=== PATIENT | male | born 1950 | race Caucasian/White ===

== ENCOUNTER 2017-07-07 05:56 | Inpatient (IN) ==
[2017-07-07] MEDS ORDERED: MELOXICAM 15 MG TABLET PO ONE (06:00)
[2017-07-07] MEDS ORDERED: LIDOCAINE 1% (10mg/ml) 2mL INJ PF SDV ID ONE (06:00)
[2017-07-07] MEDS ORDERED: ACETAMINOPHEN 500 MG TABLET PO ONE (06:00)
[2017-07-07] MEDS ORDERED: DEXAMETHASONE 4 MG/ML INJECTION IVP ONE (06:00)
[2017-07-07] MEDS ORDERED: METOCLOPRAMIDE 10mg/2ml INJECTION IVP ONE (06:00)
[2017-07-07] MEDS ORDERED: NOZIN NASAL SWAB NAS ONE ×2 (06:00→10:34)
[2017-07-07] MEDS ORDERED: ONDANSETRON 4 MG/2 ML INJECTION IVP ONE (06:00)
[2017-07-07] MEDS ORDERED: FAMOTIDINE PB 20 MG/50 ML BAG IV ONE (06:00)
[2017-07-07 06:16] VITALS: BMI 27.8
[2017-07-07] MEDS: LR 1,000 ML IV SCH ×2 (06:43→09:58)
[2017-07-07] MEDS ORDERED: VANCOMYCIN 1,000 MG INJECTION ONE (07:10)
--- NOTE | 2017-07-07 07:40 | Anesthesia Preoperative Report ---
Anesthesia Preoperative Record - Date and Time Date: 07/07/17 Preoperative Diagnosis: Lt TKA M17.12 Proposed Procedure: Left Total knee replacement NPO Since Date: 07/07/17 NPO Since Time: 00:00 Allergies/Adverse Reactions: Allergies Allergy/AdvReac Type Severity Reaction Status Date / Time morphine Allergy Unknown Rash Verified 07/07/17 06:18 - Vital Signs Vital Signs: Temperature 98.3 F 07/07/17 06:16 Pulse Rate 72 07/07/17 06:25 Respiratory Rate 16 07/07/17 06:16 Blood Pressure 145/74 H 07/07/17 06:16 Pulse Oximetry 94 07/07/17 06:16 Height and Weight: Height 5 ft 7 in Weight 80.7 kg Body Mass Index 27.8 - Medications Inpatient Medications: Current Medications Cefazolin Sodium (Kefzol) 2 g IVP PREOP ONE Stop: 07/07/17 08:31 Epinephrine HCl 0.25 mg/Bupivacaine HCl 30 ml/Ketorolac Tromethamine 60 mg/ Sodium Chloride 62.25 mls @ 0 mls/hr OPSITE INTRAOP ONE; Per Protocol PRN Reason: Protocol Stop: 07/07/17 08:01 Lactated Ringer's (Lactated Ringers) 1,000 mls @ 50 mls/hr IV .Q20H LOBO Last Admin: 07/07/17 06:43 Dose: 50 mls/hr Sodium Chloride (Iv Flush) 10 - 80 ml IV PRN PRN PRN Reason: Flushing Tranexamic Acid (Cyklokapron) 1,000 mg TOP INTRAOP ONE Stop: 07/07/17 11:01 Home Medications: Home Medications Medication Instructions Recorded Confirmed Type Aspirin *EC* [Ecotrin] 81 mg PO DAILY 05/30/17 07/06/17 History Loratadine [Claritin] 10 mg PO DAILY 05/30/17 07/07/17 History Minocycline [Minocin] 100 mg PO DAILY 05/30/17 05/30/17 History Multivitamin [One Daily] 1 each PO DAILY 05/30/17 07/07/17 History Pravastatin Sodium [Pravachol] 60 mg PO HS 05/30/17 07/07/17 History Ranitidine [Zantac] 150 mg PO BID 05/30/17 07/07/17 History Plavix (clopidogrel) 75 mg tablet 75 mg PO DAILY 05/31/17 07/06/17 History Is Patient on Beta Nahum?: No - Medical History Respiratory: DENIES: Sleep Apnea Cardiovascular: Reports: High Cholesterol Gastrointestional: Reports: Gastroesophageal Reflux Disease Neuro/Musculoskeletal: Reports: HX.MS.OSAR, Back Problems, Cerebrovascular Accident (TIA- No residual) Other History: Reports: Anesthesia Reactions (shoulder block x2 did not work, other locals have not worked) - Surgical History HEENT Surgeries: Reports: Eye Surgery (OU cataract ext with IOL implant), Nose Surgery (deviated septum) Cardiac Surgeries/Treatments: Reports: Cardiac Catheterization (2001-Negative) GI Surgery/Treatments: Reports: Colonoscopy (2013) Musculoskeletal Surgery/Tx: Reports: Knee Arthroscopy (left x2), Shoulder Arthroscopy (right x2), Other (Lt trigger finger release; exc of ganglion cyst) Anesthesia Reactions: None Hx Family Anesthesia Reaction: No History of Motion Sickness: No - Social History Smoking Status: Never smoker Substance Use Type: does not use Alcohol Intake Frequency: does not drink - Pertinent Findings Laboratory: CBC and BMP 07/07/17 06:33 EKG: Sinus Rhythm - Physical Exam Respiratory Exam: Present: lungs clear, bilateral breath sounds equal Cardiovascular Exam: Present: regular rate and rhythm, no murmur - Airway Assessment Mallampati Score: II TMD: 3 Fingerbreadths Neck Extension: fair Overall Assessment: may be difficult intubation - ASA ASA Score: 2 - Plan Anesthesia: General Inhalation Gases Peripheral Nerve Block: Other (post op adductor canal block) - Discussion Discussion: Discussed risks/options/alternatives of anesthesia and questions answered. Patient consents. Nursing pain assessment noted. Present for Discussion: family member Attestation Statement: Prior to the delivery of any anesthetic medication, I examined the patient, developed the plan, obtained the patient's consent and discussed the risk and benefits of the procedure with the patient/guardian. - Additional Information Seen by Anesthesia: Yes
[2017-07-07] MEDS ORDERED: HYDROMORPHONE 2 MG/ML INJECTION IVP PRN (07:41)
[2017-07-07] MEDS ORDERED: DiphenhydrAMINE 50 MG/ML INJECTION IVP PRN ×2 (07:41→10:34)
[2017-07-07] MEDS ORDERED: ONDANSETRON 4 MG/2 ML INJECTION IVP PRN ×2 (07:41→10:34)
[2017-07-07] MEDS ORDERED: ANESTHESIA MIXTURE 50 ML IV ONE (07:45)
[2017-07-07] MEDS ORDERED: HYDROMORPHONE 2 MG/ML INJECTION ONE (07:49)
[2017-07-07] MEDS ORDERED: FentaNYL 100 MCG/2 ML INJECTION ONE (07:50)
[2017-07-07] MEDS ORDERED: EPINEPHrine PF 0.25 MG, BUPIVACAINE 0.25% PF 30 ML, KETOROLAC INJ 60 MG in NS 30 ML OPSITE ONE (08:00)
[2017-07-07] MEDS ORDERED: CEFAZOLIN 1 G INJECTION IVP ONE (08:30)
[2017-07-07] MEDS ORDERED: VANCOMYCIN 1,000 MG INJECTION IAR ONE (09:23)
--- NOTE | 2017-07-07 09:38 | Operative Note ---
- Procedure Preoperative Diagnosis: Left knee primary degenerative joint disease Postoperative Diagnosis: Same as preoperative diagnosis. Surgeon: Ventura Lion MD Patient Care: Navi Small Complications: None. Anesthesia: General Estimated Blood Loss: See Anesthesia Record. Fluids: Please see Anesthesia Record. Desciption of Procedure: Mr. Spencer and his left knee were identified and marked in the preoperative holding area. He was brought back to the operating suite after a saphenous nerve block was placed in the preoperative holding area. He was placed under general anesthesia. The left lower extremity was prepped and draped in my normal sterile fashion. Timeout was performed. The [employer] robot was used during the surgery. He has fixed varus deformity with mild flexion contracture. A standard anterior midline incision followed by medial parapatellar arthrotomy was performed. Anterior fat pad and meniscus were removed. The patella was resurfaced to a size 35. Tibial and femoral arrays were placed both within the original incision. Checkpoints were then placed both in the femur and the tibia. The bone was then registered with the [employer] robot. Osteophytes were removed and gaps were captured both 90 and 0 with correction after larger medial release. We corrected back to about 4 of varus in both flexion and extension. [employer] robotic software was used to obtain 80 mm Flexion 17 Mm Gaps in Extension. The [employer] robotic arm was then used to assist with the bone cuts. Posterior osteophytes and remaining meniscus were removed. Trial components were placed. We used a 5 femur and a 5 tibia with a 9 mm spacer. He tracked well and was well balanced throughout range of motion. After thorough irrigation the components were press-fit into place including the 9 mm spacer. The knee was ranged one more time to ensure good stability, balance and patellar tracking. 1 g of TXA was allowed to sit in the wound for 5 minutes and then suctioned out. 1 g of vancomycin powder was then placed into the knee joint. The capsulotomy was then closed with #1 Vicryl. I then left my equity sales assistant to close the subcutaneous tissue with 2-0 Vicryl. Running 4-0 Monocryl will be used in the subcuticular layer. Dermabond will be used on the skin followed by sterile dressing. After drapes are removed patient will be taken to recovery room under the care of anesthesia.
[2017-07-07] MEDS ORDERED: PROPOFOL 20 ML ONE (09:42)
[2017-07-07] MEDS ORDERED: ROPIVACAINE 0.5% (5mg/ml) 30ml INJ ONE (09:45)
[2017-07-07] MEDS ORDERED: Oxycodone *IR* 5 MG TABLET PO PRN (10:34)
[2017-07-07] MEDS ORDERED: DiphenhydrAMINE 25 MG CAPSULE PO PRN (10:34)
[2017-07-07] MEDS ORDERED: NAPROXEN 220 MG TABLET PO PRN (10:34)
[2017-07-07] MEDS ORDERED: LORazepam 1 MG TABLET PO PRN (10:34)
[2017-07-07] MEDS ORDERED: LORATADINE 10 MG TABLET PO SCH (10:34)
[2017-07-07] MEDS ORDERED: DEXAMETHASONE 4 MG/ML INJECTION IVP SCH (10:34)
--- NOTE | 2017-07-07 10:49 | XRay Report ---
Indication: postoperative image PROCEDURE: XR knee LT 2V: Encounter: Initial Comparison: May 30, 2017 Findings: Postoperative changes of left total knee replacement are seen. There is expected postoperative subcutaneous gas. No evidence of hardware failure or acute fracture. No retained radiopaque surgical instruments or sponges. Overlying material causing artifact. Impression: New left total knee prosthesis without evidence of immediate complication. .
[2017-07-07] MEDS: NS 1,000 ML IV SCH (10:54)
[2017-07-07] MEDS ORDERED: SALINE FLUSH 10ml SYRINGE IV PRN (11:00)
[2017-07-07] MEDS ORDERED: TRANEXAMIC ACID 1,000mg/10ml INJECTION TOP ONE (11:00)
[2017-07-07] MEDS: RANITIDINE 150 MG TABLET PO SCH ×2 (12:32→21:30)
[2017-07-07] MEDS: POLYETHYL GLYCOL 3350 17gm PACKET PO SCH (12:32)
[2017-07-07] MEDS: CLOPIDOGREL 75 MG TABLET PO SCH (12:33)
[2017-07-07] MEDS: ACETAMINOPHEN 325 MG TABLET PO SCH ×4 (12:33→21:30)
[2017-07-07] MEDS: DOCUSATE SODIUM 100 MG CAPSULE PO SCH ×2 (12:34→21:30)
[2017-07-07] MEDS: MINOCYCLINE 100 MG CAPSULE PO SCH (12:35)
--- NOTE | 2017-07-07 13:47 | Anesthesia Procedure Note ---
Peripheral Nerve Blockade - Procedure Physician: Misha Lion MD Date: 07/07/17 Surgical Procedure: Left Total Knee Replacement Discussion: Discussed risks/options/alternatives of anesthesia and questions answered. Patient consents. Nursing pain assessment noted. Block Start: 10:07 Block Stop: 10:10 Blocked Employed: Adductor Canal Indication: Post-Operative Pain Approach: Left Side Confirmed Position: Supine Patient: Consent, Risks/Benefits Discussed, Informed, Post Block Act. Discussed IV Sedation: No Sedation: Awake Initial Vital Signs: Temperature 98.3 F 07/07/17 06:16 Temperature Source Oral 07/07/17 06:16 Pulse Rate 72 07/07/17 06:16 Respiratory Rate 16 07/07/17 06:16 Blood Pressure 145/74 H 07/07/17 06:16 Blood Pressure Mean 97 07/07/17 06:16 Blood Pressure Position Sitting 07/07/17 06:16 Pulse Oximetry 94 07/07/17 06:16 Oxygen Delivery Method 07/07/17 06:16 Post Vital Signs: Temperature 98.5 F 07/07/17 10:50 Pulse Rate 81 07/07/17 13:35 Respiratory Rate 16 07/07/17 12:35 Blood Pressure 134/67 07/07/17 13:35 Pulse Oximetry 93 07/07/17 13:35 Initial Pain Pain Score: 4 Ultrasound Used?: Yes - Injectate Ropivacaine (%): 0.5 Ropivacaine (mL): 25 Was Epi 1:200,000 Used?: No Injection: Injection made incrementally with constant monitoring and aspiration every ml
[2017-07-07] MEDS ORDERED: METOCLOPRAMIDE 10mg/2ml INJECTION IVP PRN (15:00)
[2017-07-07] MEDS: DEXAMETHASONE 4 MG/ML INJECTION IVP SCH ×2 (15:23→23:53)
[2017-07-07] MEDS: CEFAZOLIN 2 G in NS 100 ML IV SCH ×2 (15:23→23:54)
[2017-07-07] MEDS: NOZIN NASAL SWAB NAS SCH ×2 (15:25→21:31)
--- NOTE | 2017-07-07 19:41 | Anesthesia Postoperative Note ---
- Date and Time Date: 07/07/17 Time: 19:40 - Status Patient Participated in Evaluation: Patient Participated in Person Vital Signs: Temperature 98.1 F 07/07/17 14:35 Pulse Rate 74 07/07/17 18:04 Respiratory Rate 16 07/07/17 18:04 Blood Pressure 136/69 07/07/17 18:04 Pulse Oximetry 96 07/07/17 14:43 Respiratory Function: Airway Patent Cardiovascular Function: Regular Pulse EKG: Sinus Rhythm Mental Status: Alert and Oriented Pain Intensity: 1 Hydration: Taking PO Fluids Complications During Recover: None Apparent Post Anesthesia Care Notes: Pt reports some nausea without emesis. reports as being "manageable" at this time. - Follow-Up Instructions Instructions: Per Surgeon
[2017-07-07] MEDS ORDERED: PRAVASTATIN 40 MG TABLET PO SCH (21:00)
[2017-07-07] MEDS ORDERED: SENNOSIDES 8.6 MG TABLET PO SCH (21:00)
[2017-07-07] MEDS: ASPIRIN *EC* 81 MG TABLET PO SCH (21:30)
[2017-07-07] MEDS ORDERED: FALL RISK - PHARMACY CONSULT MC ONE (22:40)
[2017-07-08] MEDS: NS 1,000 ML IV SCH (01:13)
[2017-07-08 05:05] VITALS: O2SAT 96
[2017-07-08] MEDS: NOZIN NASAL SWAB NAS SCH (06:06)
[2017-07-08] MEDS ORDERED: LORATADINE 10 MG TABLET PO SCH (06:30)
[2017-07-08] MEDS ORDERED: SENNOSIDES 8.6 MG TABLET PO PRN (07:11)
--- NOTE | 2017-07-08 08:02 | Orthopedic Progress Note ---
Date: Subjective/Severity of Illness: Art is doing very well this AM. Pain is controlled but he has some soreness in back of the knee. He has been mobile with good tolerance. No CP or breathing issues. Orthopedic Objective PO Vital signs: Temperature 97.8 F 07/08/17 04:00 Pulse Rate 73 07/08/17 04:00 Respiratory Rate 15 07/08/17 04:00 Blood Pressure 135/67 07/08/17 04:00 Pulse Oximetry 96 07/08/17 04:00 Height and Weight: Height 5 ft 7 in Weight 179 lb 7.3 oz Body Mass Index 27.8 - Constitutional General Appearance: Present: alert, cooperative, no acute distress - Respiratory Exam Present: non-labored - Extremities Exam Extremities: Present: pulses intact. Absent: calf tenderness - Integumentary Exam Present: pink, warm, dry - Neurological Exam Present: no deficits - Psychiatric Exam Present: alert, normal affect - Labs Result Diagrams: 07/08/17 03:53 07/08/17 03:53 Abnormal lab results 07/08/17 07/08/17 Range/Units 03:53 03:53 Hgb 12.8 L D (13.5-17.5) GM/DL Hct 40.2 L (41-53) % Creatinine 0.7 L (0.8-1.5) MG/DL BUN/Creatinine Ratio 27 H (6-26) RATIO Glucose 136 H (75-110) MG/DL H & H 07/07/17 07/08/17 Range/Units 06:33 03:53 Hgb 14.5 12.8 L D (13.5-17.5) GM/DL Hct 44.5 40.2 L (41-53) % Orthopedic Assessment and Plan (1) Primary osteoarthritis of left knee Status: Acute Assessment and Plan: Resume Plavix and add ASA for additional VTE prophylaxis. SCD's. PT/OT services to improve independent function. Discharge Planning per Case Management. - Anticoagulation Therapy Anticoagulation: Resume home anticoagulant Hospital Course Summary Disclaimer: The visit summary below is not to be considered part of the above Progress Note.
[2017-07-08] MEDS: POLYETHYL GLYCOL 3350 17gm PACKET PO SCH (09:23)
[2017-07-08] MEDS: ASPIRIN *EC* 81 MG TABLET PO SCH (09:24)
[2017-07-08] MEDS: DOCUSATE SODIUM 100 MG CAPSULE PO SCH (09:24)
[2017-07-08] MEDS: ACETAMINOPHEN 325 MG TABLET PO SCH (09:24)
[2017-07-08] MEDS: CLOPIDOGREL 75 MG TABLET PO SCH (09:27)
[2017-07-08] MEDS: MINOCYCLINE 100 MG CAPSULE PO SCH (09:27)
[2017-07-08 12:25] VITALS: BP 131/67; PULSE 79; RESP 14; TEMP 97.7
--- NOTE | 2017-07-08 12:44 | Discharge Summary ---
Orthopedic Discharge Info Date of admission: 07/07/17 05:56 Primary care physician: JULES POP Attending Physician: Misha Lion MD Consults: 07/07/17 06:15 Consult to Anesthesiology [CONS] Routine Consulting Provider: NUSRAT Nair Reason For Exam: Preoperative Assessment 07/07/17 10:34 Case Management Consult [CONS] Routine Reason For Exam: Discharge Planning DME-Walker [CONS] Routine Height: 5 ft 7 in Weight: 177 lb 14.609 oz Comment: change dressing in 2 weeks Total Joint Outpatient Therapy [CONS] Routine Comment: change dressing in 2 weeks - Discharge Diagnosis (1) Primary osteoarthritis of left knee Status: Acute - Procedures Procedures: Left TKA - Laboratory Result Diagrams: 07/08/17 03:53 07/08/17 03:53 Laboratory: Abnormal lab results 07/08/17 07/08/17 Range/Units 03:53 03:53 Hgb 12.8 L D (13.5-17.5) GM/DL Hct 40.2 L (41-53) % Creatinine 0.7 L (0.8-1.5) MG/DL BUN/Creatinine Ratio 27 H (6-26) RATIO Glucose 136 H (75-110) MG/DL H & H 07/07/17 07/08/17 Range/Units 06:33 03:53 Hgb 14.5 12.8 L D (13.5-17.5) GM/DL Hct 44.5 40.2 L (41-53) % Orthopedic Discharge HPI - HPI Comments This patient was admitted for elective surgical tx of end stage degenerative joint disease that failed to respond to conservative treatment. Further details of this is found in the admission H&P. Orthopedic Hospital Course Ongoing care required?: No - Postoperative Anemia patient received IVF, labs monitored daily, no intervention required, HGB drop- acceptable Discharge Plan - Med Rec/Dispo Referrals/Follow Up: Misha Lion MD [Physician] - 08/01/17 9:15 am [place] Inst[place]: [facility] [place] Additional Instructions: [facility] ON 07/11/2017 AT 9:15AM FOR PHYSICAL THERAPY EVAL. PLEASE COMPLETE THE PAPERWORK IN THE [facility] PRIOR TO THE APPOINTMENT. PHONE [phone] Prescriptions: New Acetaminophen [Tylenol] 650 mg PO QID tablet Oxycodone *IR* [Roxicodone *Ir*] 5 - 15 mg PO Q3H PRN #60 tab PRN Reason: Breakthrough Pain PEG 3350 17gm PACKET [Miralax] 17 gm PO DAILY packet Aspirin *EC* [Ecotrin] 81 mg PO BID #84 tablet Continue Aspirin *EC* [Ecotrin] 81 mg PO DAILY Multivitamin [One Daily] 1 each PO DAILY Ranitidine [Zantac] 150 mg PO BID Loratadine [Claritin] 10 mg PO DAILY Minocycline [Minocin] 100 mg PO DAILY Pravastatin Sodium [Pravachol] 60 mg PO HS Plavix (clopidogrel) 75 mg tablet 75 mg PO DAILY - Disposition 01 Discharged Home, Self-Care - Dismissal Complete Discharge Instructions are:: Complete
[2017-07-09] MEDS ORDERED: BISACODYL 10 MG SUPPOSITORY RECTALLY SCH (20:00)
== END 2017-07-08 15:00 | disposition home or self-care (01) | DRG 470 ==
LOC: SRG 05:56
PROVIDERS: ADMIT Orthopaedic Surgery; ATTEND Orthopaedic Surgery